=== PATIENT | female | born 1935 | race Caucasian/White ===

== ENCOUNTER 2016-10-24 17:57 | Emergency (ER) | payer MEDICARE, OTHER ==
[2016-10-24] VITALS (7 sets, daily range): BP systolic 69–93; BP diastolic 47–64; PULSE 87–89; RESP 18–22; TEMP 97.8–98.7; O2SAT 94–98
[~2016-10-24] VITALS: Ht 172.7 cm; Wt 81.0 kg
[2016-10-24] MEDS ORDERED: SODIUM CHLORID 0.9% 500 ML INJ 500 ML IV ONE ×2 (18:15→19:15)
--- NOTE | 2016-10-24 18:25 | PD ---
HPI Chief Complaint: General Weakness Time Seen by Provider: 18:15 Travel History International Travel<30 days: No Contact w/Intl Traveler<30days: No Traveled to known affect area: No History of Present Illness HPI Patient comes in for evaluation after feeling weak and her blood pressure dropping the 60s systolically while at dialysis today. Patient's been having generalized weakness over the past week and was in the hospital last weekend for bronchitis. Patient states she was on Zithromax is currently on steroids for this. Patient normally does dialysis on Saturday and Saturday in [place] and is in town visiting. Patient was not able to get dialysis here on Saturday and had to go back to [place] yesterday to have dialysis Saturday for 2 hours and then went again today for an hour. Patient states that her dry weight is normally 85 kg and today she weight 84 kg prior to starting dialysis. Patient states her blood pressures normally 110 systolically and after dialysis drops in the 80s. Patient denies any chest pain, shortness of breath, nausea, vomiting, headache, or numbness or tingling anywhere. Patient states she just feels weak. Patient states she has not made urine in years. Patient is a history of end-stage renal disease on hemodialysis, hypertension, anemia, disorders of the first metabolism, hyperparathyroidism, iatrogenic hypotension, gout, coronary disease with ejection fracture of 40%, COPD, hyperlipidemia, depression, anxiety, febrile, and tobacco abuse. PFSH Past Medical History Hx Anticoagulant Therapy: Yes (COUMADIN) Atrial Fibrillation: Yes Cardiovascular Problems: Yes Dialysis: Yes Respiratory: Yes Renal Failure: Yes (ESRD) Social History Tobacco Use: Yes Substance Use: No Allergies-Medications (Allergen,Severity, Reaction): Coded Allergies: No Known Allergies (Unverified , 10/24/16) Reported Meds & Prescriptions Reported Meds & Active Scripts Active Reported Advair Diskus Inh (Fluticasone-Salmeterol Inh) 250-50 Mcg/Blist Aer 1 Puff INH BID Rinse mouth after use. Toprol XL (Metoprolol Succinate) 25 Mg Tab 12.5 Mg PO DAILY Nexium (Esomeprazole DR) 40 Mg Capdr 40 Mg PO DAILY Glucosamine (Glucosamine Sulfate) 500 Mg Cap 500 Mg PO DAILY Phoslo (Calcium Acetate (Phosphate Binder)) 667 Mg Cap 1,334 Mg PO TID Zocor (Simvastatin) 80 Mg Tab 80 Mg PO DAILY Multi-Day Vitamins (Multiple Vitamin) 1 Tab Tab 1 Tab PO DAILY Synthroid (Levothyroxine Sodium) 112 Mcg Tab 112 Mcg PO DAILY Fish Oil 1000 mg (Cecil-3 Fatty Acids) 1 Cap Cap 1,000 Cap PO DAILY Mucinex Allergy (Fexofenadine HCl) 180 Mg Tab 600 Mg PO BID Os-Mono (Calcium Carbonate-Cholecalciferol) 500-600 Mg-Unit Chew 1 Tab CHEW BID Zoloft (Sertraline HCl) 100 Mg Tab 100 Mg PO DAILY Aspirin 81 (Aspirin) 81 Mg Tabdr 81 Mg PO DAILY Elavil (Amitriptyline HCl) 25 Mg Tab 10 Tab PO HS PRN Coumadin (Warfarin) 3 Mg Tab 3 Mg PO DAILY Nitroglycerin SL (Nitroglycerin) 0.4 Mg Subl 0.4 Mg SL DIRECTED PRN ONE TABLET UNDER THE TONGUE NEEDED FOR CHEST PAIN, MAY REPEAT EVERY FIVE MINUTES FOR A TOTAL OF 3 DOSES OR CALL 911 IF NO RELIEF Review of Systems Except as stated in HPI: all other systems reviewed are Neg Physical Exam Narrative GENERAL: Well-developed, overly nourished, in no acute distress, and non-ill appearing. SKIN: Focused skin assessment warm and dry. HEAD: Atraumatic. Normocephalic. EYES: Pupils equal and round. EOMI. No scleral icterus. No injection or drainage. ENT: No nasal bleeding or discharge. Mucous membranes pink and moist. NECK: Trachea midline. Supple. No nuclear rigidity. CARDIOVASCULAR: Regular rate and rhythm. No murmur appreciated. RESPIRATORY: No accessory muscle use. No respiratory distress. Slight course sounds noted throughout. Breath sounds equal bilaterally. MUSCULOSKELETAL: No obvious deformities. No clubbing. No cyanosis. No edema. Full range of motion. NEUROLOGICAL: Awake and alert. No obvious cranial nerve deficits. Motor grossly within normal limits. Normal speech. PSYCHIATRIC: Appropriate mood and affect; insight and judgment normal. Data Data Last Documented VS Vital Signs Date Time Temp Pulse Resp B/P Pulse Ox O2 Delivery O2 Flow Rate FiO2 10/24/16 21:07 94 20 89/64 10/24/16 18:43 98 Nasal Cannula 2 10/24/16 18:07 97.8 Orders Electrocardiogram (10/24/16 ) Basic Metabolic Panel (Bmp) (10/24/16 18:12) Complete Blood Count With Diff (10/24/16 18:12) Iv Access Insert/Monitor (10/24/16 18:12) Ecg Monitoring (10/24/16 18:12) Oximetry (10/24/16 18:12) Electrocardiogram (10/24/16 18:12) Chest, Single Ap (10/24/16 18:12) Sodium Chlorid 0.9% 500 Ml Inj (Ns 500 M (10/24/16 18:15) Act Partial Throm Time (Ptt) (10/24/16 18:17) Prothrombin Time / Inr (Pt) (10/24/16 18:17) Sodium Chlorid 0.9% 500 Ml Inj (Ns 500 M (10/24/16 19:15) Orthostatic Vital Signs (10/24/16 19:11) Labs Laboratory Tests Test 10/24/16 18:00 White Blood Count 14.6 TH/MM3 Red Blood Count 4.22 MIL/MM3 Hemoglobin 14.5 GM/DL Hematocrit 44.3 % Mean Corpuscular Volume 105.1 FL Mean Corpuscular Hemoglobin 34.3 PG Mean Corpuscular Hemoglobin 32.7 % Concent Red Cell Distribution Width 16.1 % Platelet Count 184 TH/MM3 Mean Platelet Volume 9.9 FL Neutrophils (%) (Auto) 90.9 % Lymphocytes (%) (Auto) 3.5 % Monocytes (%) (Auto) 4.9 % Eosinophils (%) (Auto) 0.1 % Basophils (%) (Auto) 0.6 % Neutrophils # (Auto) 13.3 TH/MM3 Lymphocytes # (Auto) 0.5 TH/MM3 Monocytes # (Auto) 0.7 TH/MM3 Eosinophils # (Auto) 0.0 TH/MM3 Basophils # (Auto) 0.1 TH/MM3 CBC Comment DIFF FINAL Differential Comment Prothrombin Time 22.0 SEC Prothromb Time International 1.9 RATIO Ratio Activated Partial 27.8 SEC Thromboplast Time Sodium Level 137 MEQ/L Potassium Level 4.3 MEQ/L Chloride Level 97 MEQ/L Carbon Dioxide Level 27.7 MEQ/L Anion Gap 12 MEQ/L Blood Urea Nitrogen 56 MG/DL Creatinine 6.56 MG/DL Estimat Glomerular Filtration 6 ML/MIN Rate Random Glucose 162 MG/DL Calcium Level 8.7 MG/DL MDM Medical Decision Making Medical Screen Exam Complete: Yes Emergency Medical Condition: Yes Interpretation(s) EKG reviewed by Dr. Nichole shows atrial fibrillation with ventricular rate of 91. No STEMI. Chest x-ray read by radiologist shows: Borderline heart size. Mildly elevated right diaphragm of undetermined chronicity. Differential Diagnosis Hypotension, dehydration, pneumonia, volume depletion, other Narrative Course Patient has leftward varies with her from her director electrical engineering. 09/21/16 shows her BUN of 46, creatinine is 6.9, and potassium was 6. Discussed patient with Dr. Cheek, saw and evaluated the patient recommends pain a 500 cc of fluid, check orthostatics, and a if patient is stable likely be discharged home. 2020 patient reassessed reports she is feeling much better and is wanting to go home. Fluids are still running. Patient in no obvious distress upon re-evaluation. All pertinent laboratory/ Radiology result(s) discussed with patient/family. Discussed patient with Dr. Cheek prior discharge, , who is in agreement with disposition. Any questions/ concerns in reference to patient diagnosis/condition discussed and clarified prior to patient's discharge. Reinforced sheer importance of close follow up with patient's primary physician or primary care clinic. Instructed patient to return to ED immediately, if symptoms return/worsen. Pt showed understanding of above instructions. Further instructions and recommendations were detailed in discharge paperwork. Pt ambulated without difficulty out of ED at discharge. Diagnosis Primary Impression: Hypotension of hemodialysis Patient Instructions: General Instructions, Hypotension (ED) Additional Instructions: Follow-up with your primary care physician and/or director electrical engineering this week. Restart dialysis on Saturday as normally scheduled. Return to the emergency department if symptoms get worse. Disposition: 01 DISCHARGE HOME Condition: Stable Js Lerma October 24, 2016 18:24
[2016-10-24 18:39] LABS: AUTOMATED NEUTROPHIL # 13.3 TH/MM3 (1.8-7.7); BASOPHIL # 0.1 TH/MM3 (0-0.2); BASOPHIL % 0.6 % (0.0-2.0); EOSINOPHIL % 0.1 % (0.0-4.0); HEMATOCRIT 44.3 % (35.0-46.0); HEMO FLAGS DIFF FINAL; LYMPH % 3.5 % (9.0-44.0); LYMPHOCYTE # 0.5 TH/MM3 (1.0-4.8); MEAN CELL VOLUME 105.1 FL (80.0-100.0); MEAN CORPUSCULAR HEMOGLOBIN 34.3 PG (27.0-34.0); MEAN CORPUSCULAR HGB CONC 32.7 % (32.0-36.0); MONO % 4.9 % (0.0-8.0); NEUT % 90.9 % (16.0-70.0); PLATELET COUNT 184 TH/MM3 (150-450); RED BLOOD COUNT 4.22 MIL/MM3 (4.00-5.30); RED CELL DISTRIBUTION WIDTH 16.1 % (11.6-17.2); WHITE BLOOD COUNT 14.6 TH/MM3 (4.0-11.0)
[2016-10-24] MEDS ORDERED: OMEG100037 PO (18:41)
[2016-10-24] MEDS ORDERED: ADVA250A INH (18:41)
[2016-10-24] MEDS ORDERED: NEXI40CA PO (18:41)
[2016-10-24] MEDS ORDERED: COUM3TAB PO (18:41)
[2016-10-24] MEDS ORDERED: OS-CCHW2 CHEW (18:41)
[2016-10-24] MEDS ORDERED: SYNT112T PO (18:41)
[2016-10-24] MEDS ORDERED: ASPI-110 PO (18:41)
[2016-10-24] MEDS ORDERED: GLUC500C5 PO (18:41)
[2016-10-24] MEDS ORDERED: ZOLO100T PO (18:41)
[2016-10-24] MEDS ORDERED: FEXO1TAB41 PO (18:41)
[2016-10-24] MEDS ORDERED: MULTTAB27 PO (18:41)
[2016-10-24] MEDS ORDERED: NITR1SUB3 SL (18:41)
[2016-10-24] MEDS ORDERED: AMIT1TAB79 PO (18:41)
[2016-10-24] MEDS ORDERED: ZOCO80TA PO (18:41)
[2016-10-24] MEDS ORDERED: TOPR25TA PO (18:41)
[2016-10-24] MEDS ORDERED: PHOS667C5 PO (18:41)
[2016-10-24 19:01] LABS: BICARBONATE 27.7 MEQ/L (21.0-32.0); POTASSIUM 4.3 MEQ/L (3.5-5.1)
[2016-10-24 19:09] LABS: APTT (PATIENT) 27.8 SEC (24.3-30.1); INTERNATIONAL NORMALIZED RATIO 1.9 RATIO
--- NOTE | 2016-10-24 19:54 | RADRPT ---
EXAM DATE/TIME: 10/24/2016 19:34 [facility] COMPARISON: No previous studies available for comparison. INDICATIONS : Shortness of breath. MEDICAL HISTORY : None. SURGICAL HISTORY : CABG. ENCOUNTER: Initial ACUITY: 1 week PAIN SCORE: 0/10 LOCATION: Bilateral chest FINDINGS: There is slight asymmetric elevation of the lateral right diaphragm of undetermined chronicity. No de finite focal infiltrate or significant effusion. The heart is borderline size with grossly benign med iastinal contours. Sternotomy wires are present. CONCLUSION: Borderline heart size. Mildly elevated right diaphragm of undetermined chronicity. Sarath Royal MD on October 24, 2016 at 19:51 Board Certified Radiologist. This report was verified electronically.
--- NOTE | 2016-10-24 21:11 | PD ---
Physical Exam Narrative Patient was seen and examined with my surgical dental assistant. Data Data Last Documented VS Vital Signs Date Time Temp Pulse Resp B/P Pulse Ox O2 Delivery O2 Flow Rate FiO2 10/24/16 21:07 94 20 89/64 10/24/16 18:43 98 Nasal Cannula 2 10/24/16 18:07 97.8 Orders Electrocardiogram (10/24/16 ) Basic Metabolic Panel (Bmp) (10/24/16 18:12) Complete Blood Count With Diff (10/24/16 18:12) Iv Access Insert/Monitor (10/24/16 18:12) Ecg Monitoring (10/24/16 18:12) Oximetry (10/24/16 18:12) Electrocardiogram (10/24/16 18:12) Chest, Single Ap (10/24/16 18:12) Sodium Chlorid 0.9% 500 Ml Inj (Ns 500 M (10/24/16 18:15) Act Partial Throm Time (Ptt) (10/24/16 18:17) Prothrombin Time / Inr (Pt) (10/24/16 18:17) Sodium Chlorid 0.9% 500 Ml Inj (Ns 500 M (10/24/16 19:15) Orthostatic Vital Signs (10/24/16 19:11) Labs Laboratory Tests Test 10/24/16 18:00 White Blood Count 14.6 TH/MM3 Red Blood Count 4.22 MIL/MM3 Hemoglobin 14.5 GM/DL Hematocrit 44.3 % Mean Corpuscular Volume 105.1 FL Mean Corpuscular Hemoglobin 34.3 PG Mean Corpuscular Hemoglobin 32.7 % Concent Red Cell Distribution Width 16.1 % Platelet Count 184 TH/MM3 Mean Platelet Volume 9.9 FL Neutrophils (%) (Auto) 90.9 % Lymphocytes (%) (Auto) 3.5 % Monocytes (%) (Auto) 4.9 % Eosinophils (%) (Auto) 0.1 % Basophils (%) (Auto) 0.6 % Neutrophils # (Auto) 13.3 TH/MM3 Lymphocytes # (Auto) 0.5 TH/MM3 Monocytes # (Auto) 0.7 TH/MM3 Eosinophils # (Auto) 0.0 TH/MM3 Basophils # (Auto) 0.1 TH/MM3 CBC Comment DIFF FINAL Differential Comment Prothrombin Time 22.0 SEC Prothromb Time International 1.9 RATIO Ratio Activated Partial 27.8 SEC Thromboplast Time Sodium Level 137 MEQ/L Potassium Level 4.3 MEQ/L Chloride Level 97 MEQ/L Carbon Dioxide Level 27.7 MEQ/L Anion Gap 12 MEQ/L Blood Urea Nitrogen 56 MG/DL Creatinine 6.56 MG/DL Estimat Glomerular Filtration 6 ML/MIN Rate Random Glucose 162 MG/DL Calcium Level 8.7 MG/DL MDM Supervised Visit with FABIOLA: Yes Narrative Course Patient was seen and examined with assistant to the president. Erik Cheek MD October 24, 2016 21:11
--- NOTE | 2016-10-25 15:12 | EKG ---
Date Performed: 10/24/2016 Time Performed: 18:15:45 PTAGE: 81 years EKG: ATRIAL FIBRILLATION INCOMPLETE RIGHT BUNDLE BRANCH BLOCK NONSPECIFIC T-WAVE ABNORMALITY ABN ORMAL RHYTHM ECG NO PREVIOUS TRACING DOCTOR: Joe Robert Interpretating Date/Time 10/25/2016 15:10:30
== END 2016-10-24 21:41 | disposition home or self-care (01) ==
LOC: NEPE 17:57
DX: I95.3 Hypotension of hemodialysis (principal); N18.6 End stage renal disease; Z99.2 Dependence on renal dialysis
CPT/HCPCS: 71010; 80048; 85025; 85610; 85730; 93005; 96360; 99285; J7040